=== PATIENT | female | born 1930 | race Caucasian/White ===

== ENCOUNTER 2018-09-22 09:08 | Inpatient (IN) | payer MEDICARE, BC ==
[~2018-09-22] VITALS: Ht 162.6 cm; Wt 85.0 kg
[2018-10-28] VITALS (11 sets, daily range): BP systolic 116–146; BP diastolic 56–85; PULSE 69–93; TEMP 97.7–98.5
[2018-10-28] MEDS ORDERED: LOTENSIN HCT 201 TAB PO (08:25)
[2018-10-28] MEDS ORDERED: BYSTOLIC5 MG PO (08:26)
[2018-10-28] MEDS ORDERED: PRAVACHOL 40MG40 MG PO (08:27)
--- NOTE | 2018-10-28 14:41 | NUR ---
SW student met with patient, patient's granddaughter (Fransisca) and patient's neighbor/good friend (Alba) about discharge plan. Also present was animal feeder (Saskia) to discuss Medicare policy regarding knee replacements and swing bed. Patient lives alone in [place]. Patient's PCP is Dr. Patton and she uses [facility] in [place]. Patient has a cane and 4 wheeled walker at home and was independent with ADLs prior to surgery. Patient states that she does have a DPOA-HC completed and it designates her daughter (Amina). Saskia discussed Medicare's policy regarding knee replacements not qualifying as inpatient status and subsequently not qualifying for swing bed or SNF. Patient and family had planned on patient going to [facility] for post-acute rehab. Saskia has talked with Dr. Cutler about documentation and inpatient status. SW to continue to follow and check back in tomrrow to obtain patient-choice form.
--- NOTE | 2018-10-28 15:14 | NUR ---
PT TO ROOM 330 PER BED WITH REPORT FROM [facility] @3742. PT IS A/O X3, LUNGS CTA, BOWEL SOUNDS PRESENT, PEDAL PULSES PALPABLE. LEFT KNEE IN CPM WITH OCCLUSIVE DRESSING UNDER POLAR RUBEN. PT DENIES PAIN. IV TO PUMP.
--- NOTE | 2018-10-28 18:03 | NUR ---
PT NO LONGER TOLERATING CPM. REMOVED FOR PT COMFORT.
--- NOTE | 2018-10-28 21:43 | NUR ---
Patient ambulated with this nurse and newspaper photojournalist. Patient walked about 8 feet and started to get pale, and her legs gave out. This nurse attempted to talk to patient, but patient did not respond. Eyes were open, and she would mumble really softly. Patient assisted into recliner safely. After getting sat into the recliner, she became responsive and started talking with this nurse. She stated she did not lose consciousness, but was really light headed and weak. Patient alert and oriented x4. John Malloy NP called and updated on situation. Orders to continue to monitor patient.
--- NOTE | 2018-10-28 23:16 | NUR ---
Patient resting in bed with eyes closed. Stated she was very tired when assisted back into bed. No dizziness or lightheadedness when patient transferred to bed. Cryocuff placed and SCDs on. Fluids currently running to right AC. Towel placed to keep arm straight to avoid occlusion. Patient denies further needs. Call light in place.
--- NOTE | 2018-10-29 03:04 | NUR ---
Patient continues to rest comfortably. Denies pain. Noted to call out for assistance in turning the light off in her room. Re-educated information security director light usage. Catheter continues to drain clear, yellow urine. IV fluids running to right AC.
[2018-10-29 03:49] VITALS: BP 118/58; PULSE 86; TEMP 97.5
--- NOTE | 2018-10-29 03:59 | NUR ---
Patient stated her legs were sore, but stated she wasn't sure if it was time for pain medication. Patient educated on the last administration of pain medication and requested a dose. PRN pain medication given. Patient attempted to drink from the cup, but didn't get the straw close enough to her mouth before attempting to suck on it. Patient unable to use cup with straw, straw removed and she was able to drink from the cup with no difficulties. Patient appears drowsy, but answers questions appropriately.
[2018-10-29 05:40] LABS: HEMATOCRIT 38.1 % (37.0-47.0); HEMOGLOBIN 12.3 g/dl (12.5-16.0)
[2018-10-29 06:15] VITALS: BP 107/53; PULSE 81
--- NOTE | 2018-10-29 06:35 | NUR ---
bedside shift report received from INDY Garzon
[2018-10-29 07:21] VITALS: BP 105/69; PULSE 81; TEMP 98.2
[2018-10-29] MEDS ORDERED: ASPI325T6 PO (08:16)
[2018-10-29] MEDS ORDERED: NORCO 325 MG-7.1 TAB PO (08:17)
[2018-10-29] MEDS ORDERED: ROXICODONE 55 MG/TAB PO (08:17)
--- NOTE | 2018-10-29 08:30 | NUR ---
resting in chair, had breakfast and tolerated well
--- NOTE | 2018-10-29 08:57 | NUR ---
assessment completed, have reviewed assessment completed by student and in agreement with that assessment
--- NOTE | 2018-10-29 10:20 | NUR ---
remains resting in chair and denies needs, has some intermittent confusion that clears quickly
--- NOTE | 2018-10-29 11:38 | NUR ---
First visit from the floriculture teacher. No needs right now.
--- NOTE | 2018-10-29 11:51 | NUR ---
in chair and appears to be sleeping,
[2018-10-29 12:18] VITALS: BP 113/71; PULSE 81; TEMP 98.1
--- NOTE | 2018-10-29 13:00 | NUR ---
ambulated short distance in room with therapist, then into recliner and out to owen for group exercises
[2018-10-29 15:08] VITALS: BP 104/55; PULSE 63; TEMP 98.7
--- NOTE | 2018-10-29 15:45 | NUR ---
social service in to visit with patient, patient denies needs at this time, had lunch and tolerated well
--- NOTE | 2018-10-29 15:49 | NUR ---
TIMBO student met with patient to discuss post-acute rehab. Patient states that she has already met with [facility] and they are expecting her. TIMBO student presented and explained patient-choice form. Patient verbalized understanding and signed. TIMBO student provided a copy. TIMBO student called Domenica with [facility] and left voicemail in regards to sending referral and requesting fax number. TIMBO to continue to follow. Domenica: P# [phone]
--- NOTE | 2018-10-29 16:21 | NUR ---
Domenica with [facility] contacted TIMBO student. [facility] is able to do intakes on Friday mornings. student faxed referral to Domenica. Domenica will contact student tomorrow (10/30) with final decision. TIMBO to continue to follow. Domenica P# [phone] F# [phone]
--- NOTE | 2018-10-29 17:15 | NUR ---
spoke with patient regarding if she needs a pain pill, she states at this time she does not that her pain is OK at this time, explained to her to ask when she needs something for pain
--- NOTE | 2018-10-29 18:40 | NUR ---
daughter called nurse to room because the patient's left eye and ear are swollen, denies any shortness of breath and has not had any new medications but left eye and ear are swollen, the patient had not noticed until daughtermentioned it, medicated with tyesha dryl 25mg po, has large amount bloody drainage on ulises wrap to left leg, removed and aquacel with large amount drainage, removed and new aquacel placed, leg wrapped with new ulises wrap, JESSI hose to right leg removed, bedside shift report given to INDY Garzon and informed her to wrap right leg with ulises wrap tonight, it was also reported to her about the swollen left eye
[2018-10-29 21:16] VITALS: BP 106/85; PULSE 85; TEMP 98.4
[2018-10-30 01:28] VITALS: BP 137/78; PULSE 87; TEMP 97.9
--- NOTE | 2018-10-30 01:39 | NUR ---
Patient ambulated SBA at the beginning of the shift. Pain medication administered per request and was effective. Upon arrival to the room, DEEP TISSUE MASSAGE THERAPIST stated she was trying to get out of bed. Patient assisted to the restroom and when she was done, she asked where she was going now. DEEP TISSUE MASSAGE THERAPIST stated, "Back to bed." Patient then sat on the edge of the bed and when DEEP TISSUE MASSAGE THERAPIST asked her to lie down she stated, "I thought I was getting up for the day." DEEP TISSUE MASSAGE THERAPIST attempted to reorient patient to the time and patient stated, "Well, yeah, I knew that." She then layed down. Currently resting with call light in place, eyes closed, and bed alarm on d/t confusion.
[2018-10-30 04:57] VITALS: BP 121/58; PULSE 78; TEMP 97.8
--- NOTE | 2018-10-30 05:22 | NUR ---
Patient noted to be confused this morning stating she needed to get up and around if she was going to "be there at 8". Reoriented to place. Offered her coffee and patient stated, "Oh, I thought I couldn't have anything to eat or drink after midnight." This nurse reminded patient that she has already had her surgery and she can eat/drink anything she wants. Patient stated, "Oh yeah, that's right." Chair alarm in place d/t confusion. Pain medication given. Overall, an uneventful night.
--- NOTE | 2018-10-30 06:20 | NUR ---
Patient continues to be confused, asking when her surgery is. Easily reoriented. Sitting in the recliner. States her pain is "a lot better." Denies any further needs at this time. Will report off to dayshift nurse.
[2018-10-30 08:26] VITALS: BP 111/50; PULSE 84; TEMP 98.4
--- NOTE | 2018-10-30 08:52 | NUR ---
Domenica with [facility] contacted TIMBO sims to confirm acceptance of patient for swing bed. Requesting morning discharge time on Friday (10/30). Domenica supplied doc to doc and nurse to nurse number. TIMBO sims updated patient, patient has transportation via daughter arranged. TIMBO sims updated patient's nurse, Juma. Doc to Doc P# [phone] Nurse to Nurse is same as Doc to Doc
--- NOTE | 2018-10-30 10:15 | NUR ---
PT OUT TO [facility] FOR THESWARTZ CREEKY PARTICIPATED AND THEN RETURNED TO RECLINER, PAIN WELL CONTROLLED WITH PO MEDS. AMBULATING WITH SKLOW STEADY GAIT. PT TO SHOWER WITHT OT THIS AM. PLAN ON DISCHARGE TO SW[facility] BED ON FRIDAY.
--- NOTE | 2018-10-30 11:12 | NUR ---
Initial visit; Patient thanked [employer] for looking in on her and offering God's blessings and to keep her in [employer]'s prayers.
[2018-10-30 11:45] VITALS: BP 98/56; PULSE 75; TEMP 97.9
--- NOTE | 2018-10-30 15:46 | NUR ---
patient confused this pm. Calling family looking for a ride home today. Patient will discharge tommorrow to [facility]. reorinted patient.
[2018-10-30 16:58] VITALS: BP 130/66; PULSE 81; TEMP 98
[2018-10-30 20:00] VITALS: BP 144/64; PULSE 98; TEMP 98.3
--- NOTE | 2018-10-30 20:00 | NUR ---
REPORT RECEIVED. ASSUMED CARE FOR POLITICAL SCIENCE INSTRUCTOR. UP TO AMBULATE IN HALLWAY APPROX 150FEET USING WALKER/GAIT BELT/STAND BY ASSIST. TOLERATED WELL. RE-ORIENTED SEVERAL TIMES DURING WALK DUE TO CONFUSION. IS UNAWARE OF WHERE SHE IS AND WHY. ONCE RE-ORIENTED SHE STATES "OW GOSH, I KNEW THAT." ASSESSMENT COMPLETE. VS STABLE. AQUACELL DRESSING TO LEFT KNEE WITH SMALL AMOUNT OF DRAINAGE. JESSI HOSE ON. DENIES PAIN AT THIS TIME BUT REQUESTING SOMETHING FOR BEDTIME. DENIES QUESTIONS OR CONCERNS. RECLINING IN CHAIR, CHAIR ALARM ON, CALL LIGHT IN REACH. WILL MONITOR.
--- NOTE | 2018-10-30 23:00 | NUR ---
HAS BEEN VERY CONFUSED THIS SHIFT WELL ARGUMENTITIVE. STATES SHE NEEDS TO GET OUT OF HERE AND GET HOME FOR HER DOCUMENTS AND TO CARE FOR THE CAT. RE-ORIENTED SEVERAL TIMES-WOULD REALIZE THAT SHE IS IN THE HOSPITAL BUT REVERTS RIGHT BACK TO THE CONFUSED STATE. CHAIR ALARM HAS BEEN ON BUT IS QUICK AND DUE TO RISK OF FALL WE HAVE MOVED HER CLOSER TO THE NURSES STATION. REFUSING TO GET INTO BED OR CHANGE INTO NIGHT CLOTHES. RECLINING IN CHAIR WITH PILLOW SUPPORT FOR LEFT KNEE. CRYOCUFF WITH FRESH ICE/WATER. DENIES PAIN AT THIS TIME. WILL MONITOR.
[2018-10-31] VITALS: BP 140/64; PULSE 90; TEMP 98.2
[2018-10-31 04:00] VITALS: BP 130/62; PULSE 83; TEMP 97.9
--- NOTE | 2018-10-31 04:46 | NUR ---
HAS REMAINED QUITE CONFUSED THIS SHIFT. RE-ORIENTED SEVERAL TIMES. WORRIED ABOUT HOW SHE WILL GET TO [facility]. DENIES PAIN. CRYOCUFF TO LEFT KNEE THIS SHIFT. HAS SLEPT FOR APPROX AN HOUR IN RECLINED CHAIR-LEFT LOWER EXTREMITY SUPPORTED BY PILLOWS. DID AMBULATE TWICE THIS SHIFT WELL WITH WALKER/STAND BY ASSIST. DENIES ANY QUESTIONS OR CONCERNS AT THIS TIME. UP IN CHAIR, CHAIR ALARM ON, CALL LIGHT WITHIN REACH. WILL MONITOR.
--- NOTE | 2018-10-31 08:50 | NUR ---
TIMBO faxed dc orders per notation request to
[2018-10-31 09:27] VITALS: BP 112/60; PULSE 81; TEMP 98.2
--- NOTE | 2018-10-31 10:10 | NUR ---
Ambulates well with walker in room. Left knee aquacell dressing CDI. Minimal complaints of pain. Complained of not sleeping much last night. Report called to nurse at [facility]. Dismissed per w/c with daughter to swing bed at [place].
== END 2018-10-31 10:10 | disposition swing bed (61) | DRG 470 ==
LOC: JCC 10-28 07:50 → SURG 10-31 00:09
PROVIDERS: ADMIT Orthopaedic Surgery
PROC: 0SRD0J9 Replacement of Left Knee Joint with Synthetic Substitute, Cemented, Open Approach (ICD-10-PCS; principal; 2018-10-28 13:30)
DX: M17.12 Unilateral primary osteoarthritis, left knee (principal); I10 Essential (primary) hypertension
CPT/HCPCS: A4314; A9284; C1776; J0690; J2250; J2405; J2704; J3010; J3370